=== PATIENT | male | born 1960 | race African-American/Black ===

== ENCOUNTER 2021-01-01 10:49 | Inpatient (IN) | payer OTHER ==
[2021-01-01 11:22] VITALS: BMI 27.8
[2021-01-01] MEDS ORDERED: MENTHOL/PHENOL 1 EACH UD MM PRN (13:24)
[2021-01-01] MEDS ORDERED: NICOTINE POLACRILEX 2 MG GUM BUC PRN (13:24)
[2021-01-01] MEDS ORDERED: METHADONE HCL 10 MG TABLET (FOR DETOX USE ONLY) PO ONE (13:24)
[2021-01-01] MEDS ORDERED: MAGNESIUM CITRATE 300 ML BOTTLE PO PRN (13:24)
[2021-01-01] MEDS ORDERED: MAGNESIUM HYDROX 2400MG/30ML ORAL SUSPENSION 30 ML CUP PO PRN (13:24)
[2021-01-01] MEDS ORDERED: MAG HYDROX/AL HYDROX/SIMETH 30 ML UNIT-DOSE CUP PO PRN (13:24)
[2021-01-01] MEDS ORDERED: cloNIDine HCL 0.1 MG TABLET PO PRN (13:24)
[2021-01-01] MEDS ORDERED: NALOXONE HCL 0.4 MG/ML VIAL IM PRN (13:24)
[2021-01-01] MEDS ORDERED: ACETAMINOPHEN 325 MG TABLET (FP) PO PRN ×2 (13:24)
[2021-01-01] MEDS ORDERED: BISMUTH SUBSALICYLATE 524 MG/30 ML UD PO PRN (13:24)
[2021-01-01] MEDS: IBUPROFEN 400 MG TABLET (FP) PO PRN (15:30)
[2021-01-01] MEDS: METHOCARBAMOL 500 MG TABLET PO PRN ×2 (15:30→22:34)
[2021-01-01] MEDS: MELATONIN 5 MG TABLETS PO SCH (22:35)
[2021-01-01] MEDS: THIAMINE HCL 100 MG TABLET (FP) PO SCH (22:35)
[2021-01-02] MEDS ORDERED: METHADONE HCL 5 MG TABLET (FOR DETOX USE ONLY) ONE (09:10)
[2021-01-02] MEDS ORDERED: METHADONE HCL 10 MG TABLET (FOR DETOX USE ONLY) ONE (09:11)
[2021-01-02] MEDS ORDERED: METHADONE (DETOX) 20 MG, METHADONE (DETOX) 5 MG PO ONE (10:00)
[2021-01-02] MEDS: NICOTINE 7 MG/24 HOURS TOPICAL PATCH TD SCH (10:19)
[2021-01-02] MEDS: PRENATAL VITAMINS W/ FOLIC ACID TABLET (FP) PO SCH (10:20)
[2021-01-02 12:15] LABS: POTASSIUM 4.3 mmol/L (3.5-5.1)
[2021-01-02 12:21] LABS: ALBUMIN 3.1 g/dl (3.4-5.0); BLOOD UREA NITROGEN 13.6 mg/dL (7-18); CALCIUM 8.9 mg/dL (8.5-10.1)
[2021-01-02 12:23] LABS: HEMATOCRIT 43.2 % (35.4-49); HEMOGLOBIN 14.2 GM/dL (11.7-16.9); MCH 28.8 pg (25.7-33.7); MCHC 32.8 g/dl (32.0-35.9); MEAN CELL VOLUME 87.8 fl (80-96); MEAN PLT VOLUME 9.9 fl (7.5-11.1); PLATELET COUNT 210 K/MM3 (134-434); RBC 4.92 M/mm3 (4.00-5.60); WHITE BLOOD COUNT 6.2 K/mm3 (4.0-10.0)
[2021-01-02 12:24] LABS: CREATININE 1.2 mg/dL (0.55-1.3)
[2021-01-02 12:26] LABS: BILIRUBIN,TOTAL 0.5 mg/dL (0.2-1)
[2021-01-02 12:28] LABS: TOT PROT 5.8 g/dl (6.4-8.2)
[2021-01-02 13:15] LABS: HIV INTERPRETATION NEGATIVE (NEGATIVE)
[2021-01-02] MEDS: MELATONIN 5 MG TABLETS PO SCH (22:05)
[2021-01-02] MEDS: THIAMINE HCL 100 MG TABLET (FP) PO SCH (22:06)
[2021-01-02] MEDS: IBUPROFEN 400 MG TABLET (FP) PO PRN (22:08)
[2021-01-02] MEDS: METHOCARBAMOL 500 MG TABLET PO PRN (22:08)
[2021-01-03] MEDS ORDERED: METHADONE HCL 10 MG TABLET (FOR DETOX USE ONLY) PO ONE (10:00)
[2021-01-03] MEDS: NICOTINE 7 MG/24 HOURS TOPICAL PATCH TD SCH (10:23)
[2021-01-03] MEDS: PRENATAL VITAMINS W/ FOLIC ACID TABLET (FP) PO SCH (10:23)
[2021-01-03] MEDS ORDERED: diazePAM 5 MG TABLET PO PRN (10:55)
[2021-01-03] MEDS ORDERED: ALBUTEROL SO4 HFA INHALER IH PRN (12:10)
[2021-01-03] MEDS: THIAMINE HCL 100 MG TABLET (FP) PO SCH (21:34)
[2021-01-03] MEDS: MELATONIN 5 MG TABLETS PO SCH (21:34)
[2021-01-04] MEDS: IBUPROFEN 400 MG TABLET (FP) PO PRN (06:12)
[2021-01-04] MEDS ORDERED: METHADONE HCL 10 MG TABLET (FOR DETOX USE ONLY) ONE (09:13)
[2021-01-04] MEDS ORDERED: METHADONE HCL 5 MG TABLET (FOR DETOX USE ONLY) ONE (09:13)
[2021-01-04] MEDS ORDERED: METHADONE (DETOX) 10 MG, METHADONE (DETOX) 5 MG PO ONE (10:00)
[2021-01-04] MEDS: NICOTINE 7 MG/24 HOURS TOPICAL PATCH TD SCH (10:12)
[2021-01-04] MEDS: PRENATAL VITAMINS W/ FOLIC ACID TABLET (FP) PO SCH (10:12)
[2021-01-04] MEDS: MELATONIN 5 MG TABLETS PO SCH (22:32)
[2021-01-04] MEDS: THIAMINE HCL 100 MG TABLET (FP) PO SCH (22:32)
[2021-01-05 09:41] VITALS: BP 119/60; PULSE 77; TEMP 97.8
[2021-01-05] MEDS ORDERED: METHADONE HCL 10 MG TABLET (FOR DETOX USE ONLY) PO ONE (10:00)
[2021-01-05] MEDS: METHOCARBAMOL 500 MG TABLET PO PRN (10:24)
[2021-01-05] MEDS: IBUPROFEN 400 MG TABLET (FP) PO PRN (10:24)
[2021-01-05] MEDS: PRENATAL VITAMINS W/ FOLIC ACID TABLET (FP) PO SCH (10:25)
[2021-01-05] MEDS: NICOTINE 7 MG/24 HOURS TOPICAL PATCH TD SCH (10:25)
[2021-01-06] MEDS ORDERED: METHADONE HCL 5 MG TABLET (FOR DETOX USE ONLY) PO ONE (06:00)
== END 2021-01-05 13:04 | disposition home or self-care (01) | DRG 773 ==
LOC: YASAS 10:49 → Y6N 13:46
PROVIDERS: ADMIT Allergy & Immunology; ATTEND Allergy & Immunology
PROC: HZ2ZZZZ Detoxification Services for Substance Abuse Treatment (ICD-10-PCS; principal; 2021-01-01)
DX: F11.23 Opioid dependence with withdrawal (principal); F14.10 Cocaine abuse, uncomplicated; F17.210 Nicotine dependence, cigarettes, uncomplicated; F19.959 Other psychoactive substance use, unspecified with psychoactive substance-induced psychotic disorder, unspecified; F31.9 Bipolar disorder, unspecified; Z56.0 Unemployment, unspecified; Z59.0 Homelessness
CPT/HCPCS: 36415; 80053; 85027; 86780; 87389; 93005; 93010; C9803; U0003